=== PATIENT | male | born 1950 | race Caucasian/White ===

== ENCOUNTER 2024-03-03 09:56 | Day surgery (SDC) | payer MEDICARE ==
[~2024-03-03 09:56] MED LIST: Metoclopramide 10 MG/2 ML SDV IV PRN; Sodium Chloride 0.9% 10 ML Syringe FLUSH PRN
[2024-03-03] MEDS: Sodium Chloride 0.9% 1,000 ML IV SCH (10:16)
[2024-03-03] MEDS ORDERED: Lidocaine 1% 30 ML SDV ONE (10:45)
[2024-03-03] MEDS ORDERED: Propofol 200 MG/20 ML SDV ONE (10:45)
== END 2024-03-03 11:40 | disposition home or self-care (01) ==
LOC: LB.SDS 09:56
PROVIDERS: ATTEND Surgery
DX: Z12.11 Encounter for screening for malignant neoplasm of colon (principal); K57.30 Diverticulosis of large intestine without perforation or abscess without bleeding; I10 Essential (primary) hypertension; Z86.010 Personal history of colon polyps
CPT/HCPCS: J2704; J7030

== ENCOUNTER 2024-05-14 12:23 | Emergency (ER) | payer MEDICARE, BC ==
[2024-05-14] MEDS: Aspirin 81 MG Tab.Chew PO ONE (12:34)
[2024-05-14 12:59] LABS: BASOPHILS ABSOLUTE AUTO 0.02 K/uL (0.02-0.10); BASOPHILS PERCENT AUTO 0.4 % (0.0-0.5); EOSINOPHILS ABSOLUTE AUTO 0.11 K/uL (0.04-0.40); HEMATOCRIT 41.1 % (40.0-54.0); HEMOGLOBIN 14.2 g/dL (13.0-18.0); LYMPHOCYTES ABSOLUTE AUTO 1.33 K/uL (1.50-4.00); LYMPHOCYTES PERCENT AUTO 23.8 % (20.0-40.0); MEAN CORPUSCULAR HEMOGLOBIN 32.6 pg (27.0-32.0); MEAN CORPUSCULAR HGB CONC 34.5 g/dL (31.0-35.0); MEAN CORPUSCULAR VOLUME 94 fL (76-96); MEAN PLATELET VOLUME 10.5 fL (6.0-10.0); MONOCYTES ABSOLUTE AUTO 0.61 K/uL (0.20-0.80); MONOCYTES PERCENT AUTO 10.9 % (3.0-10.0); NEUTROPHILS ABSOLUTE AUTO 3.52 K/uL (2.00-7.50); NEUTROPHILS PERCENT AUTO 62.9 % (45.0-70.0); PLATELET COUNT,PLT 201 K/uL (150-400); RED BLOOD CELL COUNT 4.36 M/uL (4.50-6.50); RED CELL DISTRIBUTION WIDTH 11.9 % (11.0-16.0); WHITE BLOOD CELL COUNT,WBC 5.6 K/uL (4.0-11.0)
[2024-05-14 13:13] LABS: PTT,PARTIAL THROMBOPLSTIN TIME 25.3 SECONDS (24.4-33.2)
[2024-05-14 13:18] LABS: PROTHROMBIN TIME 10.5 sec (9.0-11.5)
[2024-05-14 13:34] LABS: CALCIUM 8.9 mg/dL (8.5-10.1)
[2024-05-14 13:35] LABS: A/G RATIO 1.5 (0.8-2.0); ALBUMIN 4.1 g/dL (3.4-5.0); BILIRUBIN TOTAL 0.8 mg/dL (0.0-1.0); BUN/CREATININE RATIO 15.5 (6-25); CARBON DIOXIDE,CO2 31.5 mmol/L (21.0-32.0); CREATININE 1.1 mg/dL (0.70-1.30); EST CRCL DRUG DOSING (CG) 62.68 mL/min; MAGNESIUM 1.7 mg/dL (1.8-2.4); POTASSIUM,K 4.5 mmol/L (3.5-5.1); PROTEIN TOTAL,TP 6.8 g/dL (6.4-8.2)
[2024-05-14 13:36] LABS: TROPONIN I HIGH SENSITIVITY 81.4 pg/ml (<=60.4)
[2024-05-14] MEDS: Heparin Sodium 5,000 Units/ML Vial IVPUSH ONE ×2 (14:13→14:21)
[2024-05-14] MEDS: Heparin Sodium/D5W 25,000 UNITS/500 ML BAG IV SCH (14:20)
[2024-05-14] MEDS ORDERED: Sodium Chloride 0.9% 10 ML Syringe FLUSH PRN (14:44)
== END 2024-05-14 16:05 ==
LOC: LB.ED 12:23
DX: I21.4 Non-ST elevation (NSTEMI) myocardial infarction (principal); I10 Essential (primary) hypertension; Z79.899 Other long term (current) drug therapy
CPT/HCPCS: 36415; 71045; 80053; 83735; 84484; 85025; 85610; 85730; 93005; 93010; 96365; 96366; 99285; A9270; J1644